=== PATIENT | male | born 1960 | race African-American/Black ===

== ENCOUNTER 2020-06-09 12:37 | Emergency (ER) | payer OTHER ==
[2020-06-09 12:51] VITALS: BP 129/73; PULSE 104; TEMP 98.6; BMI 26.2
[2020-06-09 15:26] LABS: BASO % 0.9 % (0-2.0); EOS % 2.4 % (0-4.5); HEMATOCRIT 36.7 % (35.4-49); HEMOGLOBIN 12.5 GM/dL (11.7-16.9); LYMPH % 30.7 % (8-40); MCH 33.7 pg (25.7-33.7); MEAN CELL VOLUME 99.1 fl (80-96); MEAN PLT VOLUME 7.9 fl (7.5-11.1); MONO % 11.5 % (3.8-10.2); NEUT % 54.5 % (42.8-82.8); PLATELET COUNT 241 K/MM3 (134-434); RDW 15.6 % (11.9-15.9); WHITE BLOOD COUNT 6.4 K/mm3 (4.0-10.0)
[2020-06-09 16:16] LABS: ALBUMIN 2.8 g/dl (3.4-5.0); BLOOD UREA NITROGEN 16.2 mg/dL (7-18)
[2020-06-09 16:19] LABS: CREATININE 0.8 mg/dL (0.55-1.3)
[2020-06-09 16:21] LABS: BILIRUBIN,TOTAL 1.9 mg/dL (0.2-1); TOT PROT 8.5 g/dl (6.4-8.2)
== END 2020-06-09 17:43 | disposition home or self-care (01) ==
LOC: JER 12:37
DX: M79.671 Pain in right foot (principal)
CPT/HCPCS: 36415; 73610-TC-RT-FY; 73630-TC-RT-FY; 80053; 85025; 99284-25